=== PATIENT | female | born 1985 | race African-American/Black ===

== ENCOUNTER 2020-01-17 05:03 | Inpatient (IN) | payer SELFPAY ==
[2020-01-17] MEDS ORDERED: hydrALAZINE 20 MG/ML VIAL SLOW IVP PRN ×2 (05:33→11:07)
[2020-01-17] MEDS ORDERED: Butorphanol Tartrate 1 MG/ML VIAL SLOW IVP PRN (05:43)
[2020-01-17] MEDS ORDERED: Acetaminophen 500 MG TAB PO PRN (05:43)
[2020-01-17] MEDS ORDERED: Ondansetron PF 4 MG/2 ML Vial IVP PRN ×2 (05:43→11:07)
[2020-01-17] MEDS ORDERED: Promethazine HCl 25 MG/ML VIAL IM PRN (05:43)
[2020-01-17 06:04] LABS: Hemoglobin 15.1 g/dL (12.0-16.0); Mean Corpuscular HGB CONC 34.9 g/dL (32.0-36.0); Mean Corpuscular Hemoglobin 28.3 pg (27.0-31.0); Mean Corpuscular Volume 81.2 fL (78.0-98.0); Mean Platelet Volume 12.2 fL (7.4-10.4); Platelet Count 155 thou/uL (130-400); RBC Distribution Width 14.3 % (11.5-14.5); Red Blood Cell (RBC) Count 5.34 mill/uL (4.20-5.40); White Blood Cell (WBC) Count 12.2 thou/uL (4.8-10.8)
[2020-01-17 06:11] VITALS: BMI 31.0
--- NOTE | 2020-01-17 06:12 | PDOC.FPROB ---
FMR OB H&P: HPI - History of Present Illness Chief Complaint: contractions Indentification: 34F @ 40.2wga History of Present Illness: 34F @ 40.2wga presents with contractions. She reports that the contractions began around 2am this morning and have been every 5 minutes and painful. She denies vaginal bleeding, vaginal discharge, loss of fluid. She endorses movement. She denies cp, sob, abdominal pain, n/v/d. She does not want an epidural. Both of her prior children live in [facility] with her . She is here visiting. PCP: Luisito Primary Care Physician: Luisito FMR OB H&P: Current - Care : 3 Para: 2 Gestational age: 40.2 Due date: 01/15/2020 - OB Labs Blood type: A RH: positive Antibody Screen: negative HIV: negative RPR: negative HepBsAg: negative Rubella: non-immune GBS: negative FMR OB H&P: History - OB History OB History: , both prior at full term - Surgical History Sx History: None - Social History Social History: None FMR OB H&P: Medications - Current Home Medications: Medication Instructions Recorded Confirmed Type Ferrous Sulfate 1 tab PO DAILY 01/17/20 01/17/20 History Pnv No.95/Ferrous Fum/Folic AC 1 tab PO DAILY 01/17/20 01/17/20 History [ Vitamins Tablet] Allergies/Adverse Reactions: Allergies Allergy/AdvReac Type Severity Reaction Status Date / Time No Known Allergies Allergy Unverified 01/17/20 06:28 FMR OB H&P: ROS - Review of Systems General: denies: fever/chills, weight/appetite/sleep changes Eyes: denies: eye pain, vision changes ENT: denies: nasal congestion, rhinorrhea Cardiovascular: denies: chest pain, edema Respiratory: denies: cough, shortness of breath Gastrointestinal: reports: abdominal pain (contractions). denies: nausea, vomiting, diarrhea Genitourinary (Female): denies: incontinence, dysuria Musculoskeletal: denies: stiffness, tenderness Neurologic: denies: syncope, seizures Integumentary: denies: itching, rash Endocrine: denies: cold intolerance, heat intolerance Hematologic/Lymphatic: denies: prolonged or excessive bleeding, enlarged lymph nodes Psychological: denies: depression, anxiety FMR OB H&P: Vital Signs - Maternal Vital signs: BP 117/73 P98 - Heart Tones Baseline: 135 Variability: moderate Acceleration: present Deceleration: absent Category: category 1 [place] contractions every: 2-5 FMR OB H&P: Physical Exam - Physical Exam General: other (breathing through contractions) HEENT: normocephalic and atraumatic, PERRLA, MMM Neck: supple, FROM Chest: non-tender to palpation, no lesions Heart: RRR, normal S1/S2 General: CTAB, no respiratory distress Abdomen: gravid, non-tender Musculoskeletal: pulses present, FROM in all four extremities Neurological: no tremor, no focal deficit Skin: no rash, good tugor Lymphatic: no unusual bruising or bleeding, no purpura Psychiatric: intact recent and remote memory, good judgement and insight FMR OB H&P: A/P - Problem List (1) AMA (advanced maternal age) multigravida 35+ Current Visit: Yes Status: Acute Code(s): O09.529 - SUPERVISION OF ELDERLY MULTIGRAVIDA, UNSPECIFIED TRIMESTER (2) Anemia affecting Current Visit: Yes Status: Chronic Code(s): O99.019 - ANEMIA COMPLICATING , UNSPECIFIED TRIMESTER (3) Late care Current Visit: Yes Status: Chronic Code(s): O09.30 - SUPRVSN OF PREG W INSUFFICIENT ANTENAT CARE, UNSP TRIMESTER Disposition: Patient is a 34F @ 40.2wga that presents in latent labor #sIUP, latent labor -GBS neg, PNL neg -ctx since 2am this am, ctx q2-5 -FHT: cat 1, baseline 135 -SVE: 5/complete/bulging bag @ 0525 -patient does not desire an epidural -will give dose of stadol at this time for pain #Anemia of -will get H/H and continue to monitor #AMA -aware -refused NIPT #late to care -GBS neg, PNL neg Dispo: will admit to L&D. Dr. Tate aware of patient. Will allow patient to progress through labor on her own at this time as she is sandra q2-5. Stadol at this time for pain. PCP: TAMP-Bebeto Discussion: Date/Time: 01/17/20 0603 This H&P was discussed with [Brent] and [Bebeto] who agree with the above documentation and plan. Signature: Tiffanie Siegel [id number] Addendum - Attending - Attending Attestation Date/Time: 01/17/20 0819 I personally evaluated the patient and discussed the management with Dr. Siegel I agree with the History, Examination, Assessment and Plan documented above with any addition or exceptions noted below. Expectant management. Limited PNC in [place] but had f/u in [place] during 1T and 2T.
[2020-01-17] MEDS ORDERED: Butorphanol Tartrate 1 MG/ML VIAL ONE (06:21)
[2020-01-17 06:41] LABS: Syphilis Antibody Nonreactive (Nonreactive); Syphilis Antibody Index 0.05 S/CO (<1.00 Non-Reactive)
[2020-01-17 06:46] LABS: HBSAg Index 0.15 S/CO (0-0.99); Hep B Surf Ag Non-Reactive S/CO (NonReactive)
[2020-01-17] MEDS ORDERED: Lidocaine 1% (PF) 30 ML VIAL ONE (07:17)
[2020-01-17] MEDS ORDERED: NS / Oxytocin 40 units/1000ml 1,000 ML ONE ×2 (07:17→09:38)
[2020-01-17] MEDS ORDERED: Ibuprofen 800 MG TAB PO SCH (09:00)
[2020-01-17] MEDS ORDERED: Milk Of Magnesia 30 ML UDCUP PO PRN (11:07)
[2020-01-17] MEDS ORDERED: Lanolin Ointment 7 GM TUBE TOP PRN (11:07)
[2020-01-17] MEDS ORDERED: Benzocaine-Menthol 82.5 ML CAN TOP PRN (11:07)
[2020-01-17] MEDS ORDERED: diphenhydrAMINE 25 MG CAP PO PRN (11:07)
[2020-01-17] MEDS ORDERED: Bisacodyl 10 MG SUPP PR PRN (11:07)
[2020-01-17] MEDS ORDERED: Preparation H Ointment 28 GM TUBE PR PRN (11:07)
[2020-01-17] MEDS ORDERED: NS / Oxytocin 40 units/1000ml 1,000 ML IV SCH (11:07)
[2020-01-17] MEDS ORDERED: Adacel (T-DAP) 0.5 ML SYRINGE IM ONE (11:07)
[2020-01-17] MEDS: Prenatal Vitamin 1 TAB PO SCH (12:17)
[2020-01-17] MEDS: Acetaminophen 500 MG TAB PO PRN (12:51)
[2020-01-17] MEDS: Ferrous Sulfate 325 MG TAB PO SCH (13:55)
[2020-01-17] MEDS: Ibuprofen 800 MG TAB PO SCH ×2 (16:10→23:01)
[2020-01-17] MEDS: Docusate Calcium (SURFAK) 240 MG CAP PO SCH (21:30)
[2020-01-18] MEDS: Ibuprofen 800 MG TAB PO SCH ×2 (05:58→14:16)
[2020-01-18] MEDS: Ferrous Sulfate 325 MG TAB PO SCH (08:19)
[2020-01-18] MEDS: Prenatal Vitamin 1 TAB PO SCH (08:19)
[2020-01-18] MEDS: Docusate Calcium (SURFAK) 240 MG CAP PO SCH (08:19)
[2020-01-18] MEDS: Acetaminophen 500 MG TAB PO PRN (08:23)
--- NOTE | 2020-01-18 09:15 | PDOC.PP ---
Post Progress Note Post Day #: 1 Subjective: Patient doing well. No significant overnight events. Lochia has lessened since yesterday. Tolerating PO. Ambulating without difficulty. Infant went to NICU last night due to temperature instability. Sepsis workup has been initiated. Patient would like to stay with infant in hospital via Bed and Breakfast. PO intake tolerated: yes Flatus: yes Ambulation: yes Vital Signs (12 hours) Temp Pulse Resp BP Pulse Ox 01/18/20 08:30 98.2 F 69 17 104/55 L 99 01/18/20 08:15 99 01/18/20 04:15 98.6 F 71 18 99/52 L 94 L 01/17/20 23:50 99.3 F 73 18 99/57 L 96 Weight Weight 82.1 kg - Physical Examination General: NAD Cardiovascular: RRR Respiratory: non-labored breathing Abdominal: + bowel sounds, lochia (minimal), no distention, appropriately TTP Fundus firm & at: just above umbilicus Deviation from normal: Trace edema Psychiatric: A&Ox3, normal affect Result Diagrams: 01/17/20 05:56 Additional Labs: Post Labs Blood Type A POSITIVE 01/17/20 06:42 Hep Bs Antigen Non-Reactive S/CO (NonReactive) 01/17/20 05:56 (1) Vaginal delivery Code(s): O80 - ENCOUNTER FOR FULL-TERM UNCOMPLICATED DELIVERY Status: Acute (2) AMA (advanced maternal age) multigravida 35+ Code(s): O09.529 - SUPERVISION OF ELDERLY MULTIGRAVIDA, UNSPECIFIED TRIMESTER Status: Acute (3) Anemia affecting Code(s): O99.019 - ANEMIA COMPLICATING , UNSPECIFIED TRIMESTER Status : Chronic (4) Late care Code(s): O09.30 - SUPRVSN OF PREG W INSUFFICIENT ANTENAT CARE, UNSP TRIMESTER Status: Chronic - Assessment/Plan 34 year old G3 now P3003 delivered TAGA M at 39.6 wks by LMP/12.5 wk sono via Routine PP care - PP day #1, s/p - Lochia minimal - Tolerating PO - Rh pos, rubella immune - Desires IUD for PP contraception Late transfer of care from [facility] - Had complete PNC in [facility], transferred to [place] in early 3T - Labs obtained in [place] WNL - Sono obtained in [place] reviewed and normal Anemia of - H/H stable on admission - QBL appx 350 mL, lochia minimal Dispo: Plan to d/c today to Bed and Breakfast. in NICU. Addendum - Attending - Attending Attestation Date/Time: 01/18/20 9570 I personally evaluated the patient and discussed the management with Dr. Tate I agree with the History, Examination, Assessment and Plan documented above with any addition or exceptions noted below. PPD#1 Patient doing well. Request early d/c. Lochia mild. Pain controlled. Fundus firm, nontender. 1. sp : Routine care. Ok to d/c to bnb today. 2. AMA Follow up with PCP in 1 to 2 wks. Risk for preE. Monitor for symptoms. Deirdre
[2020-01-18 11:57] VITALS: BP 100/56; TEMP 97.8
--- NOTE | 2020-01-21 07:23 | DN ---
DATE OF PROCEDURE: 01/17/2020 DELIVERING PHYSICIAN: Roxane Tate DO. ATTENDING PHYSICIAN: lA Hernandez MD PROCEDURE PERFORMED: Spontaneous vaginal delivery. ANESTHESIA: Local for repair. ESTIMATED BLOOD LOSS: 350 mL. PREOPERATIVE DIAGNOSES: 1. Term intrauterine in labor. 2. Advanced maternal age. 3. Late transfer of care from [facility]. POSTOPERATIVE DIAGNOSES: 1. Term intrauterine , delivered. 2. Advanced maternal age. 3. Late transfer of care from [facility]. 4. First-degree perineal laceration, status post repair. INDICATIONS FOR PROCEDURE: This is a 34-year-old female, G3, P2-0-0-2, who presented in labor. DELIVERY NOTE: This is a 34-year-old female, G3, P2-0-0-2 at 39 and 6 weeks gestation by LMP and 12-and 5-week sono, who delivered a viable male infant at 8:09 a.m. on 01/17/2020 via spontaneous vaginal delivery. Following an uneventful antepartum course, a vigorous male was delivered over an intact perineum in the occipitoanterior position. The anterior shoulder and then the remainder of the body were delivered. Nuchal cord x1 which was reduced prior to delivery of anterior shoulder. Head was held down, and the mouth and nares were bulb suctioned. Cord was clamped and cut and cord blood collected. Placenta was delivered intact with a 3-vessel cord noted and discarded. Fundal massage was performed and the fundus was firm. The cervix and vagina were inspected and a first-degree perineal laceration was noted and repaired with a simple [id number] stitch using 3-0 Vicryl on . A local anesthetic using 1% lidocaine was injected prior to closure. Infant went to nursery in good condition for routine care. Apgars were 9 and 9 at 1 and 5 minutes respectively. The patient tolerated delivery well and went to after routine recovery/care. Job ID: [id number]
== END 2020-01-18 14:50 | disposition home or self-care (01) | DRG 807 ==
LOC: L&D/OP 05:03 → L&D 05:48 → 3SW 10:21
PROVIDERS: ADMIT Family Medicine; ATTEND Obstetrics & Gynecology
PROC: 10E0XZZ Delivery of Products of Conception, External Approach (ICD-10-PCS; principal; 2020-01-17)
PROC: 0HQ9XZZ Repair Perineum Skin, External Approach (ICD-10-PCS; 2020-01-17)
DX: O99.02 Anemia complicating childbirth (principal); Z37.0 Single live birth; D64.9 Anemia, unspecified; O70.0 First degree perineal laceration during delivery; Z3A.40 40 weeks gestation of pregnancy
CPT/HCPCS: 36415; 85027; 86780; 86850; 86900; 86901; 87340; 99285; J0595; J2001